=== PATIENT | female | born 2005 | race Caucasian/White ===

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

== ENCOUNTER 2024-01-03 06:16 | Inpatient (IN) | payer MEDICAID ==
[~2024-01-03] VITALS: Ht 167.6 cm; Wt 66.8 kg
[2024-01-03 06:54] LABS: BASOPHILS % (AUTO) 0.1 % (0-1); EOSINOPHILS % (AUTO) 0 % (0-6); HEMATOCRIT 38.8 % (35.0-45.0); LYMPHOCYTES # (AUTO) 0.6 X10'3 (1.1-4.8); LYMPHOCYTES % (AUTO) 6.3 % (21-51); MEAN CORPUSCULAR HEMOGLOBIN 30.3 PG (27.0-31.0); MEAN CORPUSCULAR HGB CONC 33.6 g/dL (33.0-36.5); MEAN CORPUSCULAR VOLUME 90.2 FL (78-98); MONOCYTES # (AUTO) 0.2 X10'3 (0-0.9); MONOCYTES % (AUTO) 1.6 % (2-12); NEUTROPHILS # (AUTO) 9.2 X10'3 (1.8-7.7); PLATELET COUNT 309 X10'3 (140-440); RED CELL DISTRIBUTION WIDTH 13.3 % (11.5-14.5)
[2024-01-03 06:55] LABS: ALANINE AMINOTRANSFERASE 16 U/L (12-78); ALBUMIN 3.1 G/DL (3.4-5.0); ALBUMIN/GLOBULIN RATIO 0.9 (1.1-1.5); ALKALINE PHOSPHATASE 59 IU/L (20-180); ANION GAP 12 (8-16); ASPARTATE AMINO TRANSFERASE 12 U/L (10-37); BILIRUBIN,TOTAL 0.3 MG/DL (0.1-1.0); BLOOD UREA NITROGEN 9 MG/DL (7-18); BUN/CREATININE RATIO 8.9 (10.0-20.0); CALCIUM 8.2 MG/DL (8.5-10.1); CHLORIDE 111 MMOL/L (99-107); CREATININE 1.01 MG/DL (0.40-0.90); GLUCOSE 160 MG/DL (70-104); POTASSIUM 4.2 MMOL/L (3.5-5.1); SODIUM 145 MMOL/L (135-145); TOTAL CARBON DIOXIDE 21.8 MMOL/L (24-32); TOTAL PROTEIN 6.7 G/DL (6.4-8.2); eCRCL 84 ML/MIN; eGFR 71 ML/MIN
[2024-01-03 07:05] LABS: SALICYLATE 1.5 MG/DL (4.0-20.0); THYROID STIMULATING HORMONE 1.34 ulU/ml (0.34-4.50)
[2024-01-03 07:06] LABS: ACETAMINOPHEN 178.5 UG/ML (10-30)
[2024-01-03 07:07] LABS: ETHANOL < 10 MG/DL (<10)
[2024-01-03 07:41] LABS: ABG BASE EXCESS -5.8 mmol/L (-2.0-2.0); ABG HCO3 18.2 mmol/L (22.0-26.0); ABG OXYGEN SATURATION 97.8 % (94-97); ABG PCO2 (T) 31.2 mmHg (32.0-45.0); ABG PH (T) 7.382 (7.350-7.450); ABG PO2 (T) 101.6 mmHg (75.0-100.0); ALLEN'S TEST POSITIVE; FCOHb 0.3 % (0.0-3.9); FHHb 2.1 % (0.0-5.0); FMetHb 5.1 % (0.0-1.5); FO2Hb 92.5 % (94-97); MODE ROOM AIR; PATIENT TEMPERATURE 36.8; TOTAL HEMOGLOBIN 14.2 G/dl (12.0-16.0)
[2024-01-03 07:41] LABS: URINE HCG NEGATIVE (NEG)
[2024-01-03 07:47] LABS: CLARITY,URINE CLEAR (Clear); COLOR,URINE ORANGE (Yellow)
[2024-01-03] MEDS: DEXTROSE 5% IV ONE ×2 (08:00)
[2024-01-03] MEDS: WATER IV ONE ×2 (08:00)
[2024-01-03] MEDS: ACETYLCYSTEINE IV ONE ×2 (08:00)
[2024-01-03 08:03] LABS: UA COLLECTION TYPE CLN CATCH MIDSTREAM; URINE AMPHETAMINE SCREEN NEGATIVE (Neg); URINE BARBITUATE SCREEN NEGATIVE (Neg); URINE BENZODIAZEPINES SCREEN NEGATIVE (Neg); URINE CANNABINOID SCREEN POSITIVE (Neg); URINE COCAINE SCREEN POSITIVE (Neg); URINE METHADONE SCREEN NEGATIVE (Neg); URINE OPIATE SCREEN NEGATIVE (Neg); URINE PHENCYCLIDINE SCREEN NEGATIVE (Neg)
[2024-01-03 08:04] LABS: RBC,URINE NONE SEEN /HPF (0-2); WBC,URINE 0-4 /HPF (0-4)
[2024-01-03 08:05] LABS: BACTERIA,URINE FEW /HPF (Neg); MUCUS STRANDS NONE SEEN /LPF (Neg); SQUAMOUS EPITHELIAL CELL,UR MODERATE /LPF (FEW)
[2024-01-03] MEDS: magnesium 2GM in 50ml NS 50 ML IV ONE (09:02)
[2024-01-03] MEDS ORDERED: magnesium 2GM in 50ml NS 50 ML IV PRN (09:55)
[2024-01-03] MEDS ORDERED: magnesium hydroxide 30ml (MOM) UD suspension PO PRN (09:55)
[2024-01-03] MEDS ORDERED: potassium Cl 20 mEq SR tablet PO PRN (09:55)
[2024-01-03] MEDS ORDERED: magnesium 4gm in 100ml NS 100 ML IV PRN (09:55)
[2024-01-03] MEDS ORDERED: potassium Cl 40MEQ/1/2NS 520ml 520 ML IV PRN (09:55)
[2024-01-03] MEDS ORDERED: mag hydrox/Alum hydrox/simeth 30ml oral suspension PO PRN (09:55)
[2024-01-03] MEDS ORDERED: ondansetron/PF 4mg/2ml inj IV PRN (09:55)
[2024-01-03] MEDS ORDERED: magnesium Cl slow-release 64mg tablet PO PRN (09:55)
[2024-01-03] MEDS: normal saline 1000ml 1,000 ML IV SCH (10:14)
[2024-01-03 10:28] LABS: PROTHROMBIN TIME 10.9 SECONDS (9.0-12.0)
[2024-01-03 10:43] LABS: ALBUMIN 3.1 G/DL (3.4-5.0); ANION GAP 14 (8-16); BLOOD UREA NITROGEN 7 MG/DL (7-18); BUN/CREATININE RATIO 7.6 (10.0-20.0); CALCIUM 8.5 MG/DL (8.5-10.1); CHLORIDE 109 MMOL/L (99-107); CREATININE 0.92 MG/DL (0.40-0.90); GLUCOSE 186 MG/DL (70-104); POTASSIUM 4.2 MMOL/L (3.5-5.1); SODIUM 144 MMOL/L (135-145); TOTAL CARBON DIOXIDE 21.2 MMOL/L (24-32); eCRCL 92 ML/MIN; eGFR 79 ML/MIN
[2024-01-03 10:45] LABS: ACETAMINOPHEN 85.4 UG/ML (10-30)
[2024-01-03 14:11] LABS: ABG BASE EXCESS -4.3 mmol/L (-2.0-2.0); ABG OXYGEN SATURATION 97.5 % (94-97); ABG PCO2 (T) 34.6 mmHg (32.0-45.0); ABG PH (T) 7.381 (7.350-7.450); ABG PO2 (T) 99.8 mmHg (75.0-100.0); ALLEN'S TEST POSITIVE; FCOHb 0.3 % (0.0-3.9); FHHb 2.5 % (0.0-5.0); FMetHb 1.3 % (0.0-1.5); FO2Hb 95.9 % (94-97); MODE ROOM AIR; PATIENT TEMPERATURE 37.1; TOTAL HEMOGLOBIN 13.4 G/dl (12.0-16.0)
[2024-01-03 14:30] VITALS: BP 117/75; PULSE 59; RESP 14; TEMP 98.1; O2SAT 97
[2024-01-03 14:58] LABS: ACETAMINOPHEN 31.5 UG/ML (10-30); ALANINE AMINOTRANSFERASE 14 U/L (12-78); ALBUMIN 2.9 G/DL (3.4-5.0); ALBUMIN/GLOBULIN RATIO 0.7 (1.1-1.5); ALKALINE PHOSPHATASE 41 IU/L (20-180); ANION GAP 12 (8-16); ASPARTATE AMINO TRANSFERASE 10 U/L (10-37); BILIRUBIN,TOTAL 0.4 MG/DL (0.1-1.0); BLOOD UREA NITROGEN 7 MG/DL (7-18); BUN/CREATININE RATIO 10.3 (10.0-20.0); CALCIUM 8.6 MG/DL (8.5-10.1); CHLORIDE 110 MMOL/L (99-107); CREATININE 0.68 MG/DL (0.40-0.90); GLUCOSE 136 MG/DL (70-104); POTASSIUM 4.1 MMOL/L (3.5-5.1); SODIUM 145 MMOL/L (135-145); TOTAL CARBON DIOXIDE 22.6 MMOL/L (24-32); TOTAL PROTEIN 6.8 G/DL (6.4-8.2); eCRCL 125 ML/MIN; eGFR > 90 ML/MIN
[2024-01-03 14:59] LABS: INR 1.1 INR; PROTHROMBIN TIME 11.8 SECONDS (9.0-12.0)
[2024-01-03 18:00] VITALS: BP 115/73; PULSE 67; RESP 12; TEMP 98.5; O2SAT 97
[2024-01-03 19:00] VITALS: RESP 14
[2024-01-03] MEDS: K and/or MAG REPLACEMENT MC SCH (20:00)
[2024-01-03 22:18] LABS: INR 1.1 INR
[2024-01-03 22:21] LABS: ACETAMINOPHEN 5.2 UG/ML (10-30); ALANINE AMINOTRANSFERASE 15 U/L (12-78); ALBUMIN 2.6 G/DL (3.4-5.0); ALBUMIN/GLOBULIN RATIO 0.8 (1.1-1.5); ALKALINE PHOSPHATASE 44 IU/L (20-180); ANION GAP 8 (8-16); ASPARTATE AMINO TRANSFERASE 12 U/L (10-37); BILIRUBIN,TOTAL 0.5 MG/DL (0.1-1.0); BLOOD UREA NITROGEN 9 MG/DL (7-18); BUN/CREATININE RATIO 8.8 (10.0-20.0); CALCIUM 7.8 MG/DL (8.5-10.1); CHLORIDE 110 MMOL/L (99-107); CREATININE 1.02 MG/DL (0.40-0.90); GLUCOSE 125 MG/DL (70-104); POTASSIUM 3.6 MMOL/L (3.5-5.1); SODIUM 144 MMOL/L (135-145); TOTAL CARBON DIOXIDE 26.5 MMOL/L (24-32); TOTAL PROTEIN 5.9 G/DL (6.4-8.2); eCRCL 83 ML/MIN; eGFR 70 ML/MIN
[2024-01-04 07:00] VITALS: BP 98/59; PULSE 69; RESP 12; TEMP 97.7; O2SAT 97
[2024-01-04 08:00] VITALS: RESP 16; O2SAT 98
[2024-01-04 09:05] LABS: BASOPHILS % (AUTO) 0.4 % (0-1); EOSINOPHILS % (AUTO) 0.2 % (0-6); HEMATOCRIT 34.5 % (35.0-45.0); HEMOGLOBIN 11.4 g/dl (12.0-16.0); LYMPHOCYTES # (AUTO) 2.6 X10'3 (1.1-4.8); LYMPHOCYTES % (AUTO) 35.3 % (21-51); MEAN CORPUSCULAR HEMOGLOBIN 29.7 PG (27.0-31.0); MEAN CORPUSCULAR HGB CONC 33.2 g/dL (33.0-36.5); MEAN CORPUSCULAR VOLUME 89.6 FL (78-98); MEAN PLATELET VOLUME 8.3 FL (7.4-10.4); MONOCYTES # (AUTO) 0.7 X10'3 (0-0.9); MONOCYTES % (AUTO) 9.3 % (2-12); NEUTROPHILS # (AUTO) 4.1 X10'3 (1.8-7.7); NEUTROPHILS % (AUTO) 54.8 % (42-75); PLATELET COUNT 247 X10'3 (140-440); RED BLOOD COUNT 3.84 X10'6 (4.20-5.60); RED CELL DISTRIBUTION WIDTH 13.1 % (11.5-14.5); WHITE BLOOD COUNT 7.4 X10'3 (4.5-11.0)
[2024-01-04] MEDS: normal saline 1000ml 1,000 ML IV SCH (09:05)
[2024-01-04 09:40] LABS: ACETAMINOPHEN 2.9 UG/ML (10-30); ALANINE AMINOTRANSFERASE 11 U/L (12-78); ALBUMIN 2.6 G/DL (3.4-5.0); ALBUMIN/GLOBULIN RATIO 0.8 (1.1-1.5); ANION GAP 12 (8-16); ASPARTATE AMINO TRANSFERASE 9 U/L (10-37); BILIRUBIN,TOTAL 0.6 MG/DL (0.1-1.0); BLOOD UREA NITROGEN 8 MG/DL (7-18); BUN/CREATININE RATIO 11.9 (10.0-20.0); CALCIUM 8.4 MG/DL (8.5-10.1); CHLORIDE 110 MMOL/L (99-107); CREATININE 0.67 MG/DL (0.40-0.90); GLUCOSE 94 MG/DL (70-104); MAGNESIUM 1.7 MG/DL (1.5-2.4); POTASSIUM 3.4 MMOL/L (3.5-5.1); SODIUM 146 MMOL/L (135-145); TOTAL CARBON DIOXIDE 23.8 MMOL/L (24-32); TOTAL PROTEIN 5.7 G/DL (6.4-8.2); eCRCL 126 ML/MIN; eGFR > 90 ML/MIN
[2024-01-04 10:09] LABS: ALKALINE PHOSPHATASE 28 IU/L (20-180)
[2024-01-04 19:00] VITALS: RESP 14
[2024-01-04 22:00] VITALS: BP 112/62; PULSE 69; RESP 19; TEMP 97.3; O2SAT 91
[2024-01-05] MEDS: potassium Cl 20 mEq SR tablet PO PRN (01:24)
[2024-01-05 02:00] VITALS: BP 116/70; PULSE 99; RESP 14; TEMP 97.5; O2SAT 97
[2024-01-05 06:00] VITALS: BP 98/67; PULSE 75; RESP 16; TEMP 97.5; O2SAT 98
[2024-01-05 07:05] LABS: BASOPHILS % (AUTO) 0.3 % (0-1); EOSINOPHILS % (AUTO) 0.5 % (0-6); HEMATOCRIT 33.9 % (35.0-45.0); HEMOGLOBIN 11.3 g/dl (12.0-16.0); LYMPHOCYTES # (AUTO) 2.8 X10'3 (1.1-4.8); LYMPHOCYTES % (AUTO) 32.3 % (21-51); MEAN CORPUSCULAR HGB CONC 33.4 g/dL (33.0-36.5); MEAN CORPUSCULAR VOLUME 89.8 FL (78-98); MEAN PLATELET VOLUME 8.2 FL (7.4-10.4); MONOCYTES # (AUTO) 0.8 X10'3 (0-0.9); MONOCYTES % (AUTO) 9.1 % (2-12); NEUTROPHILS % (AUTO) 57.8 % (42-75); PLATELET COUNT 262 X10'3 (140-440); RED BLOOD COUNT 3.78 X10'6 (4.20-5.60); RED CELL DISTRIBUTION WIDTH 13.3 % (11.5-14.5); WHITE BLOOD COUNT 8.7 X10'3 (4.5-11.0)
[2024-01-05 07:19] LABS: ALANINE AMINOTRANSFERASE 28 U/L (12-78); ALBUMIN 2.9 G/DL (3.4-5.0); ALKALINE PHOSPHATASE 42 IU/L (20-180); ANION GAP 8 (8-16); ASPARTATE AMINO TRANSFERASE 25 U/L (10-37); BILIRUBIN,TOTAL 0.4 MG/DL (0.1-1.0); BLOOD UREA NITROGEN 11 MG/DL (7-18); BUN/CREATININE RATIO 14.7 (10.0-20.0); CALCIUM 8.3 MG/DL (8.5-10.1); CHLORIDE 109 MMOL/L (99-107); CREATININE 0.75 MG/DL (0.40-0.90); GLUCOSE 86 MG/DL (70-104); MAGNESIUM 1.6 MG/DL (1.5-2.4); POTASSIUM 3.8 MMOL/L (3.5-5.1); SODIUM 145 MMOL/L (135-145); TOTAL CARBON DIOXIDE 28.4 MMOL/L (24-32); TOTAL PROTEIN 5.9 G/DL (6.4-8.2); eCRCL 113 ML/MIN; eGFR > 90 ML/MIN
[2024-01-05 08:00] VITALS: RESP 14
[2024-01-05 11:00] VITALS: BP 112/47; PULSE 73; RESP 16; TEMP 97.3; O2SAT 100
[2024-01-05 16:00] VITALS: BP 105/67; PULSE 69; RESP 18; TEMP 97.4; O2SAT 96
[2024-01-05 19:00] VITALS: RESP 14
[2024-01-06 02:00] VITALS: PULSE 59; RESP 16
[2024-01-06 06:00] VITALS: BP 106/58; PULSE 86; RESP 16; TEMP 97.5; O2SAT 96
[2024-01-06 06:52] LABS: BASOPHILS % (AUTO) 0.5 % (0-1); EOSINOPHILS # (AUTO) 0.1 X10'3 (0-0.9); HEMATOCRIT 35.7 % (35.0-45.0); HEMOGLOBIN 12.3 g/dl (12.0-16.0); LYMPHOCYTES # (AUTO) 2.4 X10'3 (1.1-4.8); LYMPHOCYTES % (AUTO) 35.2 % (21-51); MEAN CORPUSCULAR HEMOGLOBIN 30.6 PG (27.0-31.0); MEAN CORPUSCULAR HGB CONC 34.3 g/dL (33.0-36.5); MEAN PLATELET VOLUME 7.6 FL (7.4-10.4); MONOCYTES # (AUTO) 0.7 X10'3 (0-0.9); MONOCYTES % (AUTO) 9.9 % (2-12); NEUTROPHILS # (AUTO) 3.7 X10'3 (1.8-7.7); NEUTROPHILS % (AUTO) 53.4 % (42-75); PLATELET COUNT 268 X10'3 (140-440); RED BLOOD COUNT 4.01 X10'6 (4.20-5.60); RED CELL DISTRIBUTION WIDTH 12.9 % (11.5-14.5)
[2024-01-06 07:25] LABS: ALANINE AMINOTRANSFERASE 69 U/L (12-78); ALBUMIN 3.2 G/DL (3.4-5.0); ALBUMIN/GLOBULIN RATIO 0.9 (1.1-1.5); ALKALINE PHOSPHATASE 51 IU/L (20-180); ANION GAP 6 (8-16); ASPARTATE AMINO TRANSFERASE 57 U/L (10-37); BLOOD UREA NITROGEN 12 MG/DL (7-18); BUN/CREATININE RATIO 17.4 (10.0-20.0); CALCIUM 8.6 MG/DL (8.5-10.1); CHLORIDE 107 MMOL/L (99-107); CREATININE 0.69 MG/DL (0.40-0.90); GLUCOSE 86 MG/DL (70-104); MAGNESIUM 1.9 MG/DL (1.5-2.4); POTASSIUM 3.7 MMOL/L (3.5-5.1); SODIUM 142 MMOL/L (135-145); TOTAL CARBON DIOXIDE 28.6 MMOL/L (24-32); TOTAL PROTEIN 6.6 G/DL (6.4-8.2); eCRCL 123 ML/MIN; eGFR > 90 ML/MIN
[2024-01-06 08:00] VITALS: RESP 14
[2024-01-06 11:00] VITALS: BP 116/59; PULSE 81; RESP 12; TEMP 98; O2SAT 96
[2024-01-06 15:00] VITALS: BP 118/63; PULSE 79; RESP 19; TEMP 98.2; O2SAT 97
== END 2024-01-06 20:46 | DRG 817 ==
LOC: ER 06:17 → ED HOLD 09:58 → UNDOADMIN 09:58 → ED HOLD 10:29 → PCU 3S 14:27
PROVIDERS: ADMIT Internal Medicine; ATTEND Internal Medicine
DX: T39.1X2A Poisoning by 4-Aminophenol derivatives, intentional self-harm, initial encounter (principal); D74.9 Methemoglobinemia, unspecified; R94.31 Abnormal electrocardiogram [ECG] [EKG]; Y92.89 Other specified places as the place of occurrence of the external cause; Z79.899 Other long term (current) drug therapy
CPT/HCPCS: 36415; 36600; 71045; 80048; 80053; 80305; 80320; 80329; 81001; 81025; 82803; 83735; 84443; 85018; 85025; 85610; 87811; 93005; 99291; 99292; G0378; J0132; J3475; J7030; J7060; J7070

== ENCOUNTER 2024-03-08 12:02 | Emergency (ER) | payer MEDICAID, SELFPAY | END 2024-03-08 12:28 | disposition left against medical advice (07) | LOC: ER 12:02 | DX: Z53.21 Procedure and treatment not carried out due to patient leaving prior to being seen by health care provider (principal) ==

== ENCOUNTER 2024-03-10 10:09 | Emergency (ER) | payer MEDICAID ==
[~2024-03-10] VITALS: Ht 157.5 cm; Wt 62.8 kg
[2024-03-10 12:02] LABS: URINE AMPHETAMINE SCREEN POSITIVE (Neg)
[2024-03-10 12:03] LABS: URINE BARBITUATE SCREEN NEGATIVE (Neg); URINE BENZODIAZEPINES SCREEN NEGATIVE (Neg); URINE CANNABINOID SCREEN NEGATIVE (Neg); URINE COCAINE SCREEN NEGATIVE (Neg); URINE METHADONE SCREEN NEGATIVE (Neg); URINE PHENCYCLIDINE SCREEN NEGATIVE (Neg)
[2024-03-10 12:40] VITALS: BP 98/58; PULSE 98; RESP 16; TEMP 97.8; O2SAT 98
== END 2024-03-10 12:42 | disposition home or self-care (01) ==
LOC: ER 10:10
DX: R53.1 Weakness (principal); F15.10 Other stimulant abuse, uncomplicated; Z79.899 Other long term (current) drug therapy
CPT/HCPCS: 80305; 99283

== ENCOUNTER 2024-03-28 13:37 | Emergency (ER) | payer MEDICAID ==
[~2024-03-28] VITALS: Ht 160 cm; Wt 55.0 kg
[2024-03-28 13:43] VITALS: TEMP 98.8
[2024-03-28 14:43] LABS: ALANINE AMINOTRANSFERASE 26 U/L (12-78); ALBUMIN 4.1 G/DL (3.4-5.0); ALKALINE PHOSPHATASE 54 IU/L (20-180); ANION GAP 12 (8-16); ASPARTATE AMINO TRANSFERASE 18 U/L (10-37); BILIRUBIN,TOTAL 1.6 MG/DL (0.1-1.0); BLOOD UREA NITROGEN 13 MG/DL (7-18); BUN/CREATININE RATIO 14.9 (10.0-20.0); CALCIUM 9.7 MG/DL (8.5-10.1); CHLORIDE 105 MMOL/L (99-107); CREATININE 0.87 MG/DL (0.40-0.90); GLUCOSE 86 MG/DL (70-104); POTASSIUM 3.8 MMOL/L (3.5-5.1); SODIUM 140 MMOL/L (135-145); TOTAL CARBON DIOXIDE 23.4 MMOL/L (24-32); TOTAL PROTEIN 8.2 G/DL (6.4-8.2); eCRCL 86 ML/MIN; eGFR 84 ML/MIN
[2024-03-28 14:45] LABS: BASOPHILS % (AUTO) 0.6 % (0-1); EOSINOPHILS # (AUTO) 0.1 X10'3 (0-0.9); EOSINOPHILS % (AUTO) 0.8 % (0-6); HEMATOCRIT 39.9 % (35.0-45.0); HEMOGLOBIN 13.4 g/dl (12.0-16.0); LYMPHOCYTES # (AUTO) 2.3 X10'3 (1.1-4.8); LYMPHOCYTES % (AUTO) 34.6 % (21-51); MEAN CORPUSCULAR HEMOGLOBIN 29.9 PG (27.0-31.0); MEAN CORPUSCULAR HGB CONC 33.5 g/dL (33.0-36.5); MEAN CORPUSCULAR VOLUME 89.3 FL (78-98); MONOCYTES # (AUTO) 0.6 X10'3 (0-0.9); MONOCYTES % (AUTO) 9.7 % (2-12); NEUTROPHILS # (AUTO) 3.6 X10'3 (1.8-7.7); NEUTROPHILS % (AUTO) 54.3 % (42-75); PLATELET COUNT 278 X10'3 (140-440); RED BLOOD COUNT 4.47 X10'6 (4.20-5.60); RED CELL DISTRIBUTION WIDTH 13.7 % (11.5-14.5); WHITE BLOOD COUNT 6.6 X10'3 (4.5-11.0)
[2024-03-28 14:53] LABS: PRO BRAIN NATRIURETIC PEPTIDE < 30 PG/ML (0-125); THYROID STIMULATING HORMONE 2.29 ulU/ml (0.34-4.50)
[2024-03-28 15:01] LABS: ETHANOL < 10 MG/DL (<10)
[2024-03-28 15:09] VITALS: BP 110/79; PULSE 68; RESP 14; O2SAT 100
[2024-03-28 15:26] LABS: ACETAMINOPHEN < 2.0 UG/ML (10-30)
== END 2024-03-28 15:45 | disposition home or self-care (01) ==
LOC: ER 13:38
DX: R07.89 Other chest pain (principal); F15.10 Other stimulant abuse, uncomplicated; Z79.899 Other long term (current) drug therapy
CPT/HCPCS: 36415; 71045; 80053; 80320; 80329; 83880; 84439; 84443; 84484; 85025; 93005; 99285

== ENCOUNTER 2024-07-06 02:12 | Emergency (ER) | payer MEDICAID ==
[~2024-07-06] VITALS: Ht 160 cm; Wt 61.9 kg
[~2024-07-06 02:12] MED LIST changes: +ONDA-243 PO; -ONDA4TAB12 PO
[2024-07-06 02:13] VITALS: BP 105/68; PULSE 67; RESP 17; TEMP 98.7; O2SAT 99
[2024-07-06 02:51] LABS: BILIRUBIN,URINE NEGATIVE (Neg); CLARITY,URINE SLIGHTLY CLOUDY (Clear); COLOR,URINE YELLOW (Yellow); GLUCOSE, URINE NEGATIVE (Neg); KETONES,URINE NEGATIVE (Neg); LEUKOCYTE ESTERASE ,URINE NEGATIVE (Neg); NITRITES, URINE NEGATIVE (Neg); OCCULT BLOOD,URINE NEGATIVE (Neg); PROTEIN,URINE NEGATIVE (Neg); UROBILINOGEN,URINE 0.2 E.U/dL (0.2-1.0)
[2024-07-06 02:52] LABS: UA COLLECTION TYPE CLN CATCH MIDSTREAM
[2024-07-06 02:59] LABS: BACTERIA,URINE FEW /HPF (Neg); MUCUS STRANDS MANY /LPF (Neg); RBC,URINE 0-2 /HPF (0-2); SQUAMOUS EPITHELIAL CELL,UR MODERATE /LPF (FEW)
[2024-07-06] MEDS ORDERED: CEPH-585 PO (04:05)
[2024-07-06] MEDS: cephalexin 250mg capsule PO ONE (04:45)
== END 2024-07-06 04:49 | disposition home or self-care (01) ==
LOC: ER 02:12
DX: O99.891 Other specified diseases and conditions complicating pregnancy (principal); N39.0 Urinary tract infection, site not specified; Z3A.01 Less than 8 weeks gestation of pregnancy
CPT/HCPCS: 81001; 87077; 87088; 87186; 99283

== ENCOUNTER 2024-09-01 00:35 | Emergency (ER) | payer MEDICAID ==
[~2024-09-01] VITALS: Ht 160 cm; Wt 63.6 kg
[2024-09-01 02:58] VITALS: BP 113/68; PULSE 67; RESP 18; TEMP 99.1; O2SAT 100
== END 2024-09-01 04:02 | disposition home or self-care (01) ==
LOC: ER 00:35
DX: O99.412 Diseases of the circulatory system complicating pregnancy, second trimester (principal); Z3A.14 14 weeks gestation of pregnancy; R00.2 Palpitations; Z79.899 Other long term (current) drug therapy
CPT/HCPCS: 93005; 99283